=== PATIENT | female | born 1930 | race Caucasian/White ===

== ENCOUNTER 2017-08-10 10:03 | Day surgery (SDC) | payer MEDICARE, OTHER ==
[2017-08-05 16:10] VITALS: BMI 20.3
[2017-08-10 10:35] LABS: Glucose,Whole Blood 103 mg/dL (75-99)
[2017-08-10 11:11] VITALS: TEMP 98.3
[2017-08-10] MEDS ORDERED: MIDAZOLAM 2 MG/2 ML VIAL IV ONE (11:38)
[2017-08-10] MEDS ORDERED: LIDOCAINE 2% INJ 20 MG/ML SQ ONE (11:38)
[2017-08-10] MEDS ORDERED: SODIUM CHLORIDE 0.9% 1,000 ML IV ONE (11:42)
[2017-08-10] MEDS ORDERED: IODIXANOL 320 MG/ML 100 ML INTRAARTER ONE (11:50)
[2017-08-10] MEDS ORDERED: SODIUM CHLORIDE 0.9% 1,000 ML IV SCH (12:00)
[2017-08-10 12:37] VITALS: RESP 18
--- NOTE | 2017-08-10 14:03 | IR ---
Fluoroscopy HISTORY: Foot ulcer 60 seconds fluoroscopy time supplied to the referring clinician. 103 intraoperative C-arm images doc ument the procedure. See dictated report from cardiology.
[2017-08-10 16:31] VITALS: PULSE 72
[2017-08-10 18:27] VITALS: BP 140/63
--- NOTE | 2017-08-10 19:24 | PCN ---
PROCEDURE NOTE DATE OF SERVICE: August 10, 2017. PERFORMING PHYSICIAN: Jose Nicole MD, brushing machine operator. PROCEDURE PERFORMED: 1. An abdominal aortogram. 2. Bilateral lower extremity runoff. INDICATIONS: This is a pleasant 86-year-old, female patient, who was referred to me by Dr. Medley for further evaluation of severe underlying PAD for nonhealing ulcer involving the right ni. The patient underwent a noninvasive testing including ROYAL and that came in to be abnormal. She was scheduled today to undergo peripheral angiogram. APPROACH: Left common femoral artery. COMPLICATION: None. LEVEL OF SEDATION: Moderate with sedation length of 17 minutes. PROCEDURE DESCRIPTION: After obtaining informed consent, the patient was brought to the cardiac film laboratory technician. The left common femoral artery was cannulated using micropuncture technique, and a micropuncture wire passed easily. Then I placed a 6-Niuean sheath in the left common femoral artery. Subsequently, I did an abdominal aortogram and bilateral lower extremity runoff using 5-Niuean pigtail catheter which was initially placed at the level of the renal arteries. Then it was pulled into above the bifurcation of the aorta to the right and left common iliac arteries. The procedure was completed without any complication. SELECTIVE PERIPHERAL ANGIOGRAM: 1. The infrarenal aorta is angiographically normal. 2. Common iliac artery: The right and left common iliac arteries are angiographically normal. 3. 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 The left external iliac artery is angiographically normal. 4. Internal iliac artery: The right and left internal iliac artery are angiographically normal. 5. The common femoral artery: The right common femoral artery is also 100% occluded in the proximal and mid portion. The left common femoral artery is angiographically normal. 6. The profunda: The right and left profunda are patent. 7. The SFA: Right and left SFA are patent. 8. Popliteal: The right and left popliteal are patent. 9. Below the knee. There are 3 vessel runoff below the knee bilaterally. CONCLUSION: Occluded right external iliac artery. POSTPROCEDURE MANAGEMENT: The patient will be scheduled to undergo a MOLD STAMPER of the right external iliac artery. From antegrade and/or retrograde approach. MMODL / IJN: [id number] /
== END 2017-08-10 18:15 | disposition home or self-care (01) ==
LOC: CATHCVL 10:03
PROVIDERS: ATTEND Internal Medicine Interventional Cardiology
DX: I74.5 Embolism and thrombosis of iliac artery (principal); I70.92 Chronic total occlusion of artery of the extremities; I73.9 Peripheral vascular disease, unspecified; L97.819 Non-pressure chronic ulcer of other part of right lower leg with unspecified severity; I10 Essential (primary) hypertension; I99.8 Other disorder of circulatory system; I89.0 Lymphedema, not elsewhere classified; Z79.899 Other long term (current) drug therapy; Z88.0 Allergy status to penicillin
CPT/HCPCS: 99152; 36200; 75625; 75716; C1894; C1769 ×4; J2001; J2250; Q9967

== ENCOUNTER 2017-08-31 10:12 | Day surgery (SDC) | payer MEDICARE, OTHER ==
[~2017-08-31 10:12] MED LIST: ALPRAZolam 0.25 MG TAB PO PRN; ALPRAZolam 0.5 MG TAB PO PRN; SODIUM CHLORIDE 0.9% 1,000 ML in EMPTY BAG 1 BAG IV ONE
[2017-08-31] MEDS ORDERED: IV FLUID CONTINUATION 1,000 ML IV ONE (12:10)
[2017-08-31] MEDS ORDERED: MIDAZOLAM 2 MG/2 ML VIAL IV ONE (12:26)
[2017-08-31] MEDS ORDERED: LIDOCAINE 2% INJ 20 MG/ML SQ ONE (12:28)
[2017-08-31] MEDS ORDERED: HEPARIN SODIUM 1,000 UN/ML (10ML VL) IV ONE (12:36)
[2017-08-31] MEDS ORDERED: NITROGLYCERIN 1000MCG/10ML SYRINGE INTRAARTER ONE (13:58)
[2017-08-31] MEDS ORDERED: CLOPIDOGREL 75 MG TAB PO ONE (14:22)
[2017-08-31] MEDS ORDERED: IODIXANOL 320 MG/ML 100 ML INTRAARTER ONE (14:23)
[2017-08-31] MEDS ORDERED: PROLIA INJ SCH (14:30)
[2017-08-31] MEDS ORDERED: SODIUM CHLORIDE 0.9% 1,000 ML IV SCH (14:30)
--- NOTE | 2017-08-31 15:09 | IR ---
Fluoroscopy HISTORY: Peripheral vascular occlusive disease Behind 0.2 minutes fluoroscopy time supplied to the referring clinician. 719 intraoperative C-arm im ages document the procedure. See dictated report from cardiology.
--- NOTE | 2017-08-31 15:28 | LTR ---
Date of Service: 08/31/2017 Dear Shai; Ms. Fiordaliza Brian underwent successful balloon angioplasty of the right external iliac artery and right common femoral artery with a good angiographic result and without any complication. I want to thank you for allowing me to participate in her care and please do not hesitate to call if you have any questions or concerns. Sincerely, Jose Nicole MD MMJOSE J / MAXIM: [id number] /
--- NOTE | 2017-08-31 15:43 | AS ---
ARTERIAL STUDY PERCUTANEOUS PERIPHERAL INTERVENTION: 08/31/2017 PERFORMING PHYSICIAN: Jose Nicole MD, Mining Engineering Technologist. PROCEDURE PERFORMED: 1. Selective right common femoral artery angiogram. 2. Selective right external iliac artery angiogram. 3. Selective left common femoral artery angiogram. 4. Atherectomy of the right common femoral using the TurboHawk device. 5. Successful balloon angioplasty of the right common femoral artery. 6. Stenting of the right external iliac artery using self expandable stent. 7. Intravascular ultrasound IVUS of the right common femoral artery and right external iliac artery. INDICATION: This is a pleasant 86-year-old female patient who is a patient of Dr. Medley who was struggling with nonhealing ulcer on the right leg. She underwent a peripheral angiogram which showed occluded right external iliac artery and right common femoral artery and she was brought today to undergo an intervention on both. APPROACH: Left common femoral artery. COMPLICATION: None. LEVEL OF SEDATION: Moderate with sedation length of 1 hour and 36 minutes. PROCEDURE DESCRIPTION: 1. After obtaining an informed consent, the patient was brought to the Cardiac General Production Laborer. The left common femoral artery was cannulated using micropuncture technique, the micropuncture wire passed easily. Then I placed an 11 cm 6-Romansh sheath in the left common femoral artery. 2. Subsequently anticoagulation was initiated using heparin and the patient was given weight-based heparin. After that, I did select the right common iliac artery using a Rim catheter with 0.35 advantage wire. After that, I did exchange my 11 cm sheath into 70 cm 6-Romansh sheath over the Advantage wire. The tip of the sheath was positioned in the right common iliac artery. 3. After that, I was able to cross the chronic total occlusion of the right external iliac artery and right common femoral artery using an 0.18 bravo tip Glidewire with an 1.8 CXI catheter. The wire was advanced all the way to the right SFA. Then I pushed the CXI catheter over the wire. Then I did selective right SFA angiogram to prove that I was in the true lumen. 4. After that, I did atherectomy of the right common femoral artery using the TurboHawk device and I was able to extract plaque from the right common femoral artery. 5. After that, I did balloon angioplasty of the right common femoral artery and right external iliac artery using 5 mm balloon. After that, I did an intravascular ultrasound of the right common iliac artery the right external iliac artery and right common femoral artery. The IVUS was performed just before we did the angioplasty. 6. Subsequently, I did deploy a 7 mm x 60 mm self-expandable stent in the right external iliac artery where the stent was positioned under fluoroscopic guidance and deployed under fluoroscopy guidance. After that, I post dilated the stent using a 6 mm balloon. 7. For the lesion in the right common femoral artery, I did balloon angioplasty using 6 mm balloon, which was a drug-coated balloon which was inflated for 3 minutes. The following angiogram showed recoiling of about 50%. I IVUS that again, which did not show any flow-limiting dissection in that segment. 8. Subsequently, I did exchange my 70 cm sheath to 11 cm sheath using the Advantage wire. After that, I did selective left common femoral artery angiogram. POSTPROCEDURE MANAGEMENT: 1. Will be made on dual anti-platelet therapy. 2. Risk factors modification. 3. Follow up with the patient. MMODL / IJN: [id number] /
[2017-08-31 16:00] VITALS: BMI 20.3
[2017-08-31] MEDS ORDERED: ATROPINE SULFATE 0.1 MG/ML 10ML SYRINGE ONE (17:25)
[2017-08-31 18:28] VITALS: RESP 16
[2017-08-31] MEDS ORDERED: MULTIVITAMINS, THERA 1 EACH TAB PO SCH (21:00)
[2017-08-31] MEDS ORDERED: CHOLECALCIFEROL 1,000 UNIT TAB PO SCH (21:00)
[2017-08-31] MEDS ORDERED: FAMOTIDINE 20 MG TAB PO SCH (21:00)
[2017-08-31] MEDS ORDERED: ATORVASTATIN 20 MG TAB PO SCH (21:00)
[2017-09-01 06:40] LABS: Non-African American GFR(MDRD) >60 (>60 ml/min/1.73 sqM)
[2017-09-01] MEDS ORDERED: LISINOPRIL-HCTZ 10-12.5 MG 1 EACH TAB PO SCH (09:00)
[2017-09-01] MEDS ORDERED: CLOPIDOGREL 75 MG TAB PO SCH (09:00)
[2017-09-01] MEDS ORDERED: ASPIRIN 325 MG TAB PO SCH (09:00)
--- NOTE | 2017-09-01 09:11 | DS ---
DISCHARGE SUMMARY BRIEF HISTORY: This is a pleasant 86-year-old female patient who was referred to see me by Dr. Medley, her railroad accountant. She was struggling with critical limb ischemia and nonhealing ulcer involving the right ni. She underwent a peripheral angiogram a few weeks ago and that showed occluded right common femoral artery with severe disease involving the right external iliac artery. The patient underwent yesterday successful percutaneous peripheral intervention of both arteries with a good angiographic result and without any complication. She is going to be discharged home on dual anti-platelet therapy as well as statin. I will follow up with the patient in the office in a week from now. I will continue monitoring her flow of the common femoral and external iliac using Doppler. MMODL / IJN: [id number] /
[2017-09-01 10:28] VITALS: BP 124/54; PULSE 80; TEMP 97.5
== END 2017-09-01 11:25 | disposition home or self-care (01) ==
LOC: CATHCVL 10:12 → 6SEL 14:03 → CATHCVL 09-01 11:25
PROVIDERS: ATTEND Internal Medicine Interventional Cardiology
DX: I70.238 Atherosclerosis of native arteries of right leg with ulceration of other part of lower leg (principal); L97.819 Non-pressure chronic ulcer of other part of right lower leg with unspecified severity; I10 Essential (primary) hypertension; I89.0 Lymphedema, not elsewhere classified; Z79.899 Other long term (current) drug therapy; Z88.0 Allergy status to penicillin; Z82.49 Family history of ischemic heart disease and other diseases of the circulatory system
CPT/HCPCS: 37221; 37225; 37252; 37253; 99153 ×5; 99152; 82565; C1894 ×2; C1725 ×2; C1769 ×7; C1876; C1714; C1753; C2623; J2001; J2250; Q9967; J1644

== ENCOUNTER 2018-06-16 13:10 | Day surgery (SDC) | payer MEDICARE, OTHER ==
[2018-06-12 14:26] VITALS: BMI 19.3
[~2018-06-16 13:10] MED LIST changes: -ALPRAZolam 0.5 MG TAB PO PRN; +ASPIRIN 325 MG TAB PO STA
[2018-06-16] MEDS ORDERED: SODIUM CHLORIDE 0.9% 1,000 ML IV ONE (14:12)
[2018-06-16 14:19] LABS: Anisocytosis Slight; Basophils % (A) 1 %; Eosinophils # (A) 0.1 k/uL (0-0.7); Eosinophils % (A) 1 %; HCT 33.3 % (34.0-46.0); HGB 10.6 gm/dL (11.4-16.0); Lymphocytes # (A) 0.8 k/uL (1.0-4.8); Lymphocytes % (A) 10 %; MCH 27.8 pg (25.0-35.0); MCHC 31.9 g/dL (31.0-37.0); MCV 87.3 fL (80.0-100.0); Mean Platelet Volume 6.8; Monocytes # (A) 0.4 k/uL (0-1.0); Monocytes % (A) 6 %; Neutrophils % (A) 81 %; Platelet Count 360 k/uL (150-450); RBC 3.82 m/uL (3.80-5.40); RDW 19.2 % (11.5-15.5); WBC 7.4 k/uL (3.8-10.6)
[2018-06-16 14:27] LABS: Calcium 8.6 mg/dL (8.4-10.2); Potassium 3.9 mmol/L (3.5-5.1)
[2018-06-16] MEDS ORDERED: MIDAZOLAM 2 MG/2 ML VIAL IVP ONE (14:33)
[2018-06-16] MEDS ORDERED: LIDOCAINE 1% INJ 10MG/ML (10 ML MDV) SQ ONE (14:50)
[2018-06-16] MEDS ORDERED: IOPAMIDOL-250 100ML BTL INTRAARTER ONE (14:50)
[2018-06-16] MEDS ORDERED: IOPAMIDOL-250 50ML BTL INTRAARTER ONE (14:50)
[2018-06-16] MEDS ORDERED: SODIUM CHLORIDE 0.9% 1,000 ML IV SCH (15:00)
[2018-06-16 15:59] VITALS: RESP 18; TEMP 97.5
[2018-06-16 17:02] VITALS: PULSE 73
[2018-06-16 17:39] VITALS: BP 120/67
--- NOTE | 2018-06-19 08:43 | IR ---
EXAMINATION TYPE: IR angio abdominal w runoff DATE OF EXAM: 06/16/2018 COMPARISON: NONE HISTORY: Peripheral vascular occlusive disease. Fluoroscopy was provided to the referring clinician. See dictated report from cardiology.
--- NOTE | 2018-07-14 10:28 | AN ---
ANGIOGRAPHY REPORT ABDOMINAL AORTOGRAM AND BILATERAL LOWER EXTREMITIES RUNOFF DATE OF PROCEDURE: 06/16/2018 INDICATION: This is a very pleasant 87-year-old female patient who was diagnosed with critical limb ischemia in the past. She underwent successful stenting of the right external iliac artery as well as successful balloon angioplasty of the right common femoral artery. Her critical limb ischemia never got better. Because of that, she was referred by her automobile service writer. I did recommend proceeding with an abdominal aortogram and bilateral lower extremities runoff. APPROACH: Left common femoral artery. COMPLICATION: None. LEVEL OF SEDATION: Conscious sedation was performed. PROCEDURE DESCRIPTION: After obtaining an informed consent, the patient was brought to the cardiac catheterization laboratory technician. The left common femoral artery was cannulated using micropuncture technique, then I placed a 5-Chinese sheath in the left common femoral artery. After that, I did perform an abdominal aortogram and bilateral lower extremity runoff using 5-Chinese pigtail catheter. The procedure was completed without any complication. SELECTIVE PERIPHERAL ANGIOGRAM: 1. The aorta is angiographically normal. 2. Common iliac arteries: Right and left common iliac arteries are patent. 3. Internal iliac arteries: Right and left internal iliac arteries are patent. 4. The common femoral arteries: Right common femoral artery is occluded and the left common femoral artery is normal. 5. Profunda: The right and left profunda are patent. 6. SFA: The right and left SFA is patent. 7. Popliteal: The right and left popliteal are patent. 8. Below the knee: The arteries below the knee are poorly visualized because of the inflow. 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 POSTPROCEDURE MANAGEMENT: INDUSTRIAL DESIGNER of the right external and right femoral artery. MMODL / IJN: [id number] /
== END 2018-06-16 20:09 | disposition home or self-care (01) ==
LOC: CATHCVL 13:10 → 3OBS 14:50 → CATHCVL 20:09
PROVIDERS: ATTEND Internal Medicine Interventional Cardiology
DX: I70.235 Atherosclerosis of native arteries of right leg with ulceration of other part of foot (principal); L97.519 Non-pressure chronic ulcer of other part of right foot with unspecified severity; Z95.820 Peripheral vascular angioplasty status with implants and grafts; I89.0 Lymphedema, not elsewhere classified; I10 Essential (primary) hypertension; E78.5 Hyperlipidemia, unspecified; Z79.2 Long term (current) use of antibiotics; Z79.02 Long term (current) use of antithrombotics/antiplatelets; Z79.82 Long term (current) use of aspirin; Z79.899 Other long term (current) drug therapy; Z88.0 Allergy status to penicillin
CPT/HCPCS: 36200; 75625; 75716; 80048; 85025; C1894; C1769 ×4; J2250; J2001; Q9966 ×2

== ENCOUNTER 2018-08-02 12:08 | Day surgery (SDC) | payer MEDICARE, OTHER ==
[~2018-08-02 12:08] MED LIST changes: -ALPRAZolam 0.25 MG TAB PO PRN; +ASPIRIN 325 MG TAB PO SCH; -ASPIRIN 325 MG TAB PO STA; -SODIUM CHLORIDE 0.9% 1,000 ML in EMPTY BAG 1 BAG IV ONE
[2018-08-02 13:28] LABS: HCT 35.8 % (34.0-46.0); HGB 11.2 gm/dL (11.4-16.0); MCH 29.8 pg (25.0-35.0); MCHC 31.4 g/dL (31.0-37.0); Mean Platelet Volume 6.7; Platelet Count 333 k/uL (150-450); RBC 3.78 m/uL (3.80-5.40); RDW 15.7 % (11.5-15.5); WBC 7.4 k/uL (3.8-10.6)
[2018-08-02 13:37] LABS: MCV 94.7 fL (80.0-100.0)
[2018-08-02 13:43] LABS: Albumin 3.7 g/dL (3.5-5.0); Calcium 8.5 mg/dL (8.4-10.2); Potassium 4.2 mmol/L (3.5-5.1); Total Bilirubin 0.5 mg/dL (0.2-1.3); Total Protein 6.8 g/dL (6.3-8.2)
[2018-08-02] MEDS ORDERED: SODIUM CHLORIDE 0.9% 1,000 ML IV ONE (14:20)
[2018-08-02] MEDS: MIDAZOLAM 2 MG/2 ML VIAL IVP ONE ×2 (14:30→15:03)
[2018-08-02] MEDS ORDERED: LIDOCAINE 1% INJ 10MG/ML (20 ML MDV) SQ ONE (14:34)
[2018-08-02] MEDS: HEPARIN SODIUM 1,000 UN/ML (10ML VL) IV ONE ×2 (14:44→15:37)
[2018-08-02] MEDS ORDERED: PROLIA INJ SCH (16:30)
[2018-08-02] MEDS ORDERED: SODIUM CHLORIDE 0.9% 1,000 ML IV SCH (16:30)
[2018-08-02] MEDS ORDERED: CLOPIDOGREL 75 MG TAB PO ONE (16:43)
[2018-08-02] MEDS ORDERED: IOPAMIDOL-370 100ML BTL INJ ONE (16:43)
--- NOTE | 2018-08-02 17:26 | LTR ---
DATE OF SERVICE: August 02, 2018. Dear Dr. Medley: Ms. Fiordaliza Brian underwent successful balloon angioplasty as well as atherectomy of the right common femoral artery with good angiographic results and reduction of stenosis from 100% to about 20-30 percent. I want to thank you for allowing us to participate in his care and please do not hesitate to call us with any questions or concerns. Sincerely, MMJOSE J / NERIN: [id number] /
--- NOTE | 2018-08-02 19:01 | AN ---
ANGIOGRAPHY REPORT DATE OF SERVICE: 08/02/2018 PERFORMING PHYSICIAN: Jose Nicole MD, consulting application engineer. PROCEDURES PERFORMED: 1. Selective right external iliac artery angiogram. 2. Selective right common femoral artery angiogram. 3. Selective left common femoral artery angiogram. 4. Atherectomy of the right common femoral artery using the TurboHawk device. 5. Intravascular ultrasound (IVUS) of the right common femoral artery and right external iliac artery. 6. Successful balloon angioplasty of the right common femoral artery using a 6.0 Impact drug-coated balloon with good angiographic results. 7. Successful balloon angioplasty of the right external iliac artery using a 6 mm balloon with good angiographic results. INDICATION: This is a pleasant 87-year-old female patient who was diagnosed with critical limb ischemia. She does have peripheral arterial disease and underwent atherectomy and balloon angioplasty of the right common femoral artery in the past as well as stenting of the right external iliac artery in the past. She underwent recently peripheral angiogram and that showed occluded right common femoral artery. APPROACH: Left common femoral artery. COMPLICATIONS: None. LEVEL OF SEDATION: Moderate with sedation length of 97 minutes. PROCEDURE DESCRIPTION: After obtaining informed consent, the patient was brought to the cardiac laboratory chief. The left common femoral artery was cannulated using micropuncture technique and the micropuncture wire passed easily. Then I placed a 6-Belgian sheath in the left common femoral artery. Subsequently I selected the right common iliac artery using a 5-Belgian RIM catheter with .035 [place] Advantage, and the Advantage wire was positioned to the right internal iliac artery. After that I exchanged my 11 cm 6-Belgian sheath for a 55 cm 6-Belgian Shin sheath. After that I did selective right common femoral and right external iliac artery angiogram. Subsequently I crossed the chronic total occlusion of the right common femoral artery using an .018 wire. After that I exchanged my .018 wire for an .014 wire using the .018 CXI catheter. After that, I did an intravascular ultrasound (IVUS) of the right common femoral artery and right external iliac artery to assess the plaque morphology and diameter of the artery. After that I deployed a filter in the right SFA preparing for directional atherectomy using the TurboHawk device with extraction of a significant amount of plaque. After that I did balloon angioplasty of the right common femoral and right external iliac using using a 5 mm AngioSculpt balloon. After that I did balloon angioplasty of the right common femoral artery using a 6 mm drug-coated balloon, and I used the same balloon to balloon the right external iliac artery. The following angiogram showed good angiographic results with reduction of stenosis from 100% to 30% to 40%. At that point the procedure was completed without any complication. Subsequently I exchanged my 55 cm 6-Belgian sheath for an 11 cm 6-Belgian sheath using .035 [place] Advantage. After that I did selective left common femoral artery angiogram. The procedure was completed without any complication. POST-PROCEDURE MANAGEMENT: 1. Dual anti-platelet therapy. 2. Risk factor modifications. 3. Follow up with the patient. MMODL / IJN: [id number] /
[2018-08-02] MEDS ORDERED: ATROPINE SULFATE 0.1 MG/ML 10ML SYRINGE ONE (20:24)
[2018-08-02] MEDS ORDERED: ATORVASTATIN 20 MG TAB PO SCH (21:00)
[2018-08-02] MEDS ORDERED: FAMOTIDINE 20 MG TAB PO SCH (21:00)
[2018-08-03 07:07] LABS: Basophils # (A) 0.1 k/uL (0-0.2); Basophils % (A) 1 %; Eosinophils # (A) 0.2 k/uL (0-0.7); Eosinophils % (A) 3 %; HCT 31.5 % (34.0-46.0); Hypochromasia Slight; Lymphocytes # (A) 0.6 k/uL (1.0-4.8); Lymphocytes % (A) 9 %; MCH 29.4 pg (25.0-35.0); MCHC 30.8 g/dL (31.0-37.0); MCV 95.3 fL (80.0-100.0); Mean Platelet Volume 6.7; Monocytes # (A) 0.5 k/uL (0-1.0); Monocytes % (A) 6 %; Neutrophils # (A) 5.9 k/uL (1.3-7.7); Neutrophils % (A) 81 %; Platelet Count 286 k/uL (150-450); RBC 3.31 m/uL (3.80-5.40); RDW 15.9 % (11.5-15.5); WBC 7.3 k/uL (3.8-10.6)
[2018-08-03 07:23] LABS: HGB 9.7 gm/dL (11.4-16.0)
[2018-08-03 07:33] LABS: Calcium 7.8 mg/dL (8.4-10.2); Potassium 4.1 mmol/L (3.5-5.1)
[2018-08-03] MEDS ORDERED: CHOLECALCIFEROL 1,000 UNIT TAB PO SCH (09:00)
[2018-08-03] MEDS ORDERED: FERROUS SULFATE 325 MG TAB PO SCH (09:00)
[2018-08-03] MEDS ORDERED: HYDROCHLOROTHIAZIDE 12.5 MG CAP PO SCH (09:00)
[2018-08-03] MEDS ORDERED: LISINOPRIL 10 MG TAB PO SCH (09:00)
[2018-08-03] MEDS ORDERED: CLOPIDOGREL 75 MG TAB PO SCH (09:00)
[2018-08-03] MEDS ORDERED: ASPIRIN 81 MG PO SCH (09:00)
[2018-08-03 09:49] VITALS: BP 148/58; PULSE 59; RESP 17; TEMP 97.6
[2018-08-03 11:49] VITALS: BMI 18.5
[2018-08-03] MEDS ORDERED: MULTIVITAMINS, THERA 1 EACH TAB PO SCH (12:00)
--- NOTE | 2018-08-03 12:16 | IR ---
Fluoroscopy INDICATION: Pain FINDINGS: Fluoroscopy time: 21.4 minutes Images obtained: 275. Procedure was performed by cardiology. Images are presented for documentation purposes. Please see re port from cardiology. IMPRESSIONS: 1. Documentation of fluoroscopy.
--- NOTE | 2018-08-03 18:09 | DS ---
DISCHARGE SUMMARY DATE OF ADMISSION: 08/02/2018 DATE OF DISCHARGE: 08/03/2018 BRIEF HISTORY: This is a very pleasant 87-year-old female patient who was experiencing critical limb ischemia of the right foot. She underwent a peripheral angiogram 4 weeks ago that revealed occluded right common femoral artery and severe disease involving the right external iliac artery. The patient was admitted to the hospital yesterday and underwent successful crossing of chronic total occlusion of the right common and right external iliac artery along with successful atherectomy and balloon angioplasty. On followup with her today, she is doing well. She denies having any chest pain or chest discomfort. The patient is going to be discharged home, and I will follow up with the patient in the next week or so. MMODL / IJN: [id number] /
== END 2018-08-03 12:08 | disposition home or self-care (01) ==
LOC: CATHCVL 12:08 → 6SEL 16:10 → CATHCVL 08-03 12:08
PROVIDERS: ATTEND Internal Medicine Interventional Cardiology
DX: I70.211 Atherosclerosis of native arteries of extremities with intermittent claudication, right leg (principal); I70.92 Chronic total occlusion of artery of the extremities; I10 Essential (primary) hypertension; E78.1 Pure hyperglyceridemia; Z79.82 Long term (current) use of aspirin; Z79.899 Other long term (current) drug therapy; Z79.2 Long term (current) use of antibiotics; Z79.02 Long term (current) use of antithrombotics/antiplatelets; Z88.0 Allergy status to penicillin
CPT/HCPCS: 37220; 37225; 37252; 37253; 80053; 80048; 85025; 85027; C1894 ×3; C1769 ×6; C1884 ×2; C1725; C1714; C1753; C2623; J2250; J2001; J1644; Q9967; 37222